=== PATIENT | female | born 1980 | race Caucasian/White ===

== ENCOUNTER 2019-10-14 18:06 | Emergency (ER) | payer OTHER ==
--- NOTE | 2019-10-14 18:39 | ED ---
Female Urogenital HPI - General Stated complaint: /bleedng Time Seen by Provider: 10/14/19 18:39 - History of Present Illness Initial comments: Patient is a 39-year-old female presenting to emergency Department with complaints of mild vaginal spotting that started this morning. She is currently 6 weeks . She has not yet seen an [employer] SALES CONSULTANT. Patient is . She is having no abdominal pain. Patient states she called her [employer] SALES CONSULTANT this morning and they suggested her going to the ER. Patient denies fever, chills, nausea, vomiting. She has no other complaints at this time. Upon arrival to the ER, her vital signs are stable. - Related Data Allergies Allergy/AdvReac Type Severity Reaction Status Date / Time No Known Allergies Allergy Verified 10/14/19 18:40 Review of Systems ROS Statement: Those systems with pertinent positive or pertinent negative responses have been documented in the HPI. ROS Other: All systems not noted in ROS Statement are negative. General Exam - General Exam Comments Initial Comments: Patient left AMA before physical examination. Course Vital Signs 10/14/19 18:37 Temperature 98.1 F Pulse Rate 119 H Respiratory 16 Rate Blood Pressure 166/96 O2 Sat by Pulse 100 Oximetry Medical Decision Making - Medical Decision Making Patient left AMA before physical examination. - Lab Data Lab Results 10/14/19 10/14/19 Range/Units 19:00 19:00 Urine Color Yellow Urine Appearance Clear (Clear) Urine pH 6.0 (5.0-8.0) Ur Specific [place] 1.013 (1.001-1.035) Urine Protein Negative (Negative) Urine Glucose (UA) Negative (Negative) Urine Ketones Negative (Negative) Urine Blood Small H (Negative) Urine Nitrite Negative (Negative) Urine Bilirubin Negative (Negative) Urine Urobilinogen <2.0 (<2.0) mg/dL Ur Leukocyte Esterase Trace H (Negative) Urine RBC 3 (0-5) /hpf Urine WBC 1 (0-5) /hpf Ur Squamous Epith Cells 3 (0-4) /hpf Urine Bacteria Rare H (None) /hpf Urine Mucus Rare H (None) /hpf Urine HCG, Qual Detected (Not Detectd) Disposition Clinical Impression: Vaginal bleeding Disposition: Left Against Medical Advice Referrals: Jude Church MD [Primary Care Provider] - 1-2 days
[2019-10-14 18:40] VITALS: BP 166/96; PULSE 119; RESP 16; TEMP 98.1
[2019-10-14 19:11] LABS: Appearance,Urine Clear (Clear); Bacteria,Urine Rare /hpf; Bilirubin,Urine Negative (Negative); Blood,Urine Small (Negative); Color,Urine Yellow; Glucose,Urine (UA) Negative (Negative); Ketones,Urine Negative (Negative); Leukocyte Esterase,Urine Trace (Negative); Mucus,Urine Rare /hpf; Nitrite,Urine Negative (Negative); Protein,Urine Negative (Negative); RBC,Urine 3 /hpf (0-5); Specific Gravity,Urine 1.013 (1.001-1.035); Squamous Epithelial Cell,Urine 3 /hpf (0-4); Urobilinogen,Urine <2.0 mg/dL (<2.0); WBC,Urine 1 /hpf (0-5)
== END 2019-10-14 19:15 | disposition left against medical advice (07) ==
LOC: EC 18:06
DX: O20.9 Hemorrhage in early pregnancy, unspecified (principal); Z3A.01 Less than 8 weeks gestation of pregnancy; Z53.29 Procedure and treatment not carried out because of patient's decision for other reasons
CPT/HCPCS: 81001; 81025; 99283

== ENCOUNTER → 2019-11-07 | Outpatient (CLI) | payer OTHER | END | disposition home or self-care (01) | LOC: LABWHC1 09:33 | PROVIDERS: ATTEND Obstetrics & Gynecology | DX: O20.0 Threatened abortion (principal); Z3A.00 Weeks of gestation of pregnancy not specified | CPT/HCPCS: 36415; 84702 ==

== ENCOUNTER 2019-11-11 10:16 | Emergency (ER) | payer OTHER ==
[2019-11-11] MEDS ORDERED: SODIUM CHLORIDE 0.9% 1,000 ML IV ONE (10:54)
--- NOTE | 2019-11-11 10:58 | ED ---
Female Urogenital HPI <Noman Cotton Luis - Last Filed: 11/11/19 13:52> - General Source: patient, RN notes reviewed, old records reviewed Mode of arrival: ambulatory Limitations: no limitations <Ruth Chang - Last Filed: 11/11/19 14:02> - General Chief complaint: Vaginal Bleeding Stated complaint: poss miscarriage Time Seen by Provider: 11/11/19 10:38 - History of Present Illness Initial comments: 39-year-old female presents today with vaginal bleeding onset last night today. She's had history of bleeding earlier in this . She states she is approximately 8 week . She states that she is Rh-. (Ruth Chang) - Related Data Home Medications Medication Instructions Recorded Confirmed Dextroamphetamine/Amphetamine 10 mg PO DAILY 11/11/19 11/11/19 [Dextroamp-Amphetamin 20 mg Tab] Previous Rx's Medication Instructions Recorded Acetaminophen-Codeine 300-30mg 1 tab PO Q6H PRN 3 Days #12 tablet 11/11/19 [Tylenol w/codeine #3] Allergies Allergy/AdvReac Type Severity Reaction Status Date / Time naproxen AdvReac Abdominal Verified 11/11/19 13:44 Pain Review of Systems ROS Other: All systems not noted in ROS Statement are negative. <Noman Cotton Luis - Last Filed: 11/11/19 13:52> ROS Other: All systems not noted in ROS Statement are negative. <Ruth Chang - Last Filed: 11/11/19 14:02> ROS Statement: Those systems with pertinent positive or pertinent negative responses have been documented in the HPI. Past Medical History Past Medical History: No Reported History History of Any Multi-Drug Resistant Organisms: None Reported Past Surgical History: No Surgical Hx Reported Past Psychological History: Anxiety, Depression Smoking Status: Never smoker Past Alcohol Use History: None Reported Past Drug Use History: None Reported <Ruth Chang - Last Filed: 11/11/19 14:02> General Exam Limitations: no limitations General appearance: alert, in no apparent distress Head exam: Present: atraumatic, normocephalic, normal inspection Eye exam: Present: normal appearance ENT exam: Present: normal exam, mucous membranes moist Neck exam: Present: normal inspection. Absent: tenderness, meningismus, lymphadenopathy Respiratory exam: Present: normal lung sounds bilaterally. Absent: respiratory distress, wheezes, rales, rhonchi, stridor <Ruth Chang - Last Filed: 11/11/19 14:02> Course Vital Signs 11/11/19 11/11/19 10:42 13:53 Temperature 98.5 F 97.4 F L Pulse Rate 122 H 91 Respiratory 18 17 Rate Blood Pressure 140/91 123/81 O2 Sat by Pulse 100 100 Oximetry Medical Decision Making - Lab Data Result diagrams: 11/11/19 11:00 <Noman Cotton - Last Filed: 11/11/19 13:52> - Lab Data Result diagrams: 11/11/19 11:00 <Ruth Chang - Last Filed: 11/11/19 14:02> - Medical Decision Making I did evaluate this patient personally. She is approximately 8 weeks by LMP. She's had vaginal bleeding with clots. She is refusing pelvic exam at this time by both the physician educational assistant teacher and myself. She is dosed with RhoGAM. Ultrasound shows complex cystic material in the cervical canal consistent with impending . I discussed case with her TEST CELL TECHNICIAN Dr. Portillo, who will follow-up with the patient in one week for repeat beta hCG. Patient will return with worsening pain, persistent bleeding. (Noman Cotton) - Lab Data Lab Results 11/11/19 11/11/19 11/11/19 Range/Units 10:58 10:58 11:00 WBC 10.6 (3.8-10.6) k/uL RBC 4.13 (3.80-5.40) m/uL Hgb 12.1 (11.4-16.0) gm/dL Hct 36.7 (34.0-46.0) % MCV 88.8 (80.0-100.0) fL MCH 29.2 (25.0-35.0) pg MCHC 32.9 (31.0-37.0) g/dL RDW 13.1 (11.5-15.5) % Plt Count 170 (150-450) k/uL Neutrophils % 83 % Lymphocytes % 10 % Monocytes % 5 % Eosinophils % 1 % Basophils % 0 % Neutrophils # 8.8 H (1.3-7.7) k/uL Lymphocytes # 1.0 (1.0-4.8) k/uL Monocytes # 0.5 (0-1.0) k/uL Eosinophils # 0.1 (0-0.7) k/uL Basophils # 0.0 (0-0.2) k/uL PT (9.0-12.0) sec INR (<1.2) APTT (22.0-30.0) sec HCG, Quant mIU/mL Urine Color Urine Appearance (Clear) Urine pH (5.0-8.0) Ur Specific [place] (1.001-1.035) Urine Protein (Negative) Urine Glucose (UA) (Negative) Urine Ketones (Negative) Urine Blood (Negative) Urine Nitrite (Negative) Urine Bilirubin (Negative) Urine Urobilinogen (<2.0) mg/dL Ur Leukocyte Esterase (Negative) Urine RBC (0-5) /hpf Urine WBC (0-5) /hpf Urine Mucus (None) /hpf Blood Type A Negative Blood Type Confirm Blood Type Recheck No Previous Record Bld Type Recheck Status CABO Indicated Antibody Screen NEGATIVE 11/11/19 11/11/19 11/11/19 Range/Units 11:00 11:00 11:00 WBC (3.8-10.6) k/uL RBC (3.80-5.40) m/uL Hgb (11.4-16.0) gm/dL Hct (34.0-46.0) % MCV (80.0-100.0) fL MCH (25.0-35.0) pg MCHC (31.0-37.0) g/dL RDW (11.5-15.5) % Plt Count (150-450) k/uL Neutrophils % % Lymphocytes % % Monocytes % % Eosinophils % % Basophils % % Neutrophils # (1.3-7.7) k/uL Lymphocytes # (1.0-4.8) k/uL Monocytes # (0-1.0) k/uL Eosinophils # (0-0.7) k/uL Basophils # (0-0.2) k/uL PT 10.5 (9.0-12.0) sec INR 1.0 (<1.2) APTT 22.4 (22.0-30.0) sec HCG, Quant 7576.7 mIU/mL Urine Color Yellow Urine Appearance Clear (Clear) Urine pH 6.0 (5.0-8.0) Ur Specific [place] 1.017 (1.001-1.035) Urine Protein Trace H (Negative) Urine Glucose (UA) Negative (Negative) Urine Ketones Negative (Negative) Urine Blood Large H (Negative) Urine Nitrite Negative (Negative) Urine Bilirubin Negative (Negative) Urine Urobilinogen <2.0 (<2.0) mg/dL Ur Leukocyte Esterase Small H (Negative) Urine RBC >182 H (0-5) /hpf Urine WBC 14 H (0-5) /hpf Urine Mucus Rare H (None) /hpf Blood Type Blood Type Confirm Blood Type Recheck Bld Type Recheck Status Antibody Screen 11/11/19 Range/Units 11:00 WBC (3.8-10.6) k/uL RBC (3.80-5.40) m/uL Hgb (11.4-16.0) gm/dL Hct (34.0-46.0) % MCV (80.0-100.0) fL MCH (25.0-35.0) pg MCHC (31.0-37.0) g/dL RDW (11.5-15.5) % Plt Count (150-450) k/uL Neutrophils % % Lymphocytes % % Monocytes % % Eosinophils % % Basophils % % Neutrophils # (1.3-7.7) k/uL Lymphocytes # (1.0-4.8) k/uL Monocytes # (0-1.0) k/uL Eosinophils # (0-0.7) k/uL Basophils # (0-0.2) k/uL PT (9.0-12.0) sec INR (<1.2) APTT (22.0-30.0) sec HCG, Quant mIU/mL Urine Color Urine Appearance (Clear) Urine pH (5.0-8.0) Ur Specific [place] (1.001-1.035) Urine Protein (Negative) Urine Glucose (UA) (Negative) Urine Ketones (Negative) Urine Blood (Negative) Urine Nitrite (Negative) Urine Bilirubin (Negative) Urine Urobilinogen (<2.0) mg/dL Ur Leukocyte Esterase (Negative) Urine RBC (0-5) /hpf Urine WBC (0-5) /hpf Urine Mucus (None) /hpf Blood Type Blood Type Confirm A Negative Blood Type Recheck Bld Type Recheck Status Antibody Screen Disposition <Noman Cotton - Last Filed: 11/11/19 13:52> Is patient prescribed a controlled substance at d/c from ED?: No Time of Disposition: 14:00 <Ruth Chang - Last Filed: 11/11/19 14:02> Clinical Impression: Threatened miscarriage Disposition: HOME SELF-CARE Condition: Good Instructions (If sedation given, give patient instructions): Miscarriage (ED) Additional Instructions: Patient advised to follow-up with OB -SINGING TEACHER, repeating hCG in one week from this time, and following up with TEST CELL TECHNICIAN afterwards. Return to ED if any alarming signs or symptoms occur. Prescriptions: Acetaminophen-Codeine 300-30mg [Tylenol w/codeine #3] 1 tab PO Q6H PRN 3 Days #12 tablet PRN Reason: Pain Referrals: Jude Church MD [Primary Care Provider] - 1-2 days Michael Portillo DO [Family Provider] - 1-2 days
[2019-11-11 11:31] LABS: Basophils % (A) 0 %; Eosinophils # (A) 0.1 k/uL (0-0.7); Eosinophils % (A) 1 %; HCT 36.7 % (34.0-46.0); HGB 12.1 gm/dL (11.4-16.0); Lymphocytes % (A) 10 %; MCH 29.2 pg (25.0-35.0); MCHC 32.9 g/dL (31.0-37.0); MCV 88.8 fL (80.0-100.0); Monocytes # (A) 0.5 k/uL (0-1.0); Monocytes % (A) 5 %; Neutrophils # (A) 8.8 k/uL (1.3-7.7); Neutrophils % (A) 83 %; Platelet Count 170 k/uL (150-450); RBC 4.13 m/uL (3.80-5.40); RDW 13.1 % (11.5-15.5); WBC 10.6 k/uL (3.8-10.6)
[2019-11-11 11:40] LABS: Appearance,Urine Clear (Clear); Bilirubin,Urine Negative (Negative); Blood,Urine Large (Negative); Color,Urine Yellow; Glucose,Urine (UA) Negative (Negative); Ketones,Urine Negative (Negative); Leukocyte Esterase,Urine Small (Negative); Mucus,Urine Rare /hpf; Nitrite,Urine Negative (Negative); Protein,Urine Trace (Negative); RBC,Urine >182 /hpf (0-5); Specific Gravity,Urine 1.017 (1.001-1.035); Urobilinogen,Urine <2.0 mg/dL (<2.0); WBC,Urine 14 /hpf (0-5)
[2019-11-11 11:45] LABS: Prothrombin Time 10.5 sec (9.0-12.0)
[2019-11-11 11:46] LABS: Partial Thromboplastin Time 22.4 sec (22.0-30.0)
--- NOTE | 2019-11-11 12:14 | US ---
EXAMINATION TYPE: Transabdominal DATE OF EXAM: 11/11/2019 11:58 AM COMPARISON: NONE CLINICAL HISTORY: bleeding, pain early . EXAM PERFORMED: Transabdominal (TA) EXAM MEASUREMENTS: GESTATIONAL AGE / DATING Physician Established: Not yet established Dates by LMP: 09/03/2019 (9 weeks/6 days) EDC: 06/09/2020 Dates by First Scan: No previous this is first scan Dates by Current Scan for: No IUP seen at this time MATERNAL ANATOMY Uterus: 12.8 x 6.9 x 9.1 cm Right Ovary: 3.8 x 2.1 x 2.3 cm Left Ovary: not identified Post CDS / Adnexa: no free fluid GESTATION / SURVEY No evidence of IUP in uterus. There is a fluid collection in the cervix that measures 7 weeks 2 days if this represents gestational sac. Date of LMP: 09/02/2019 Beta HcG (if available): not available at time of exam. Patient states prior ultrasound elsewhere that showed gestational sac and pole. Patient is blee ding heavily and passing clots. Patient did not want transvaginal ultrasound performed. No IUP seen, endo not thickened, there is fluid collection in cervix. IMPRESSION: Complex fluid collection in the cervical canal likely relates to spontaneous in the provided clinical setting. No evidence of intrauterine is seen. No pole or yolk s ac. Ensure decreasing beta hCG to exclude ectopic .
[2019-11-11] MEDS ORDERED: MORPHINE SULFATE 4 MG/ML SYRINGE IVP STA (12:48)
[2019-11-11] MEDS ORDERED: Rhogam IMMUNE GLOBULIN 1,500 UNIT/1 ML IM ONE (12:55)
[2019-11-11 13:54] VITALS: BP 123/81; PULSE 91; RESP 17; TEMP 97.4
[2019-11-11] MEDS ORDERED: ACET/COD 300 MG/30 MG STARTER PACK 6 TAB BTL PO STA (14:06)
== END 2019-11-11 14:25 | disposition home or self-care (01) ==
LOC: EC 10:16
DX: O20.0 Threatened abortion (principal); O34.41 Maternal care for other abnormalities of cervix, first trimester; N88.8 Other specified noninflammatory disorders of cervix uteri; Z88.6 Allergy status to analgesic agent; Z3A.00 Weeks of gestation of pregnancy not specified
CPT/HCPCS: 36415; 86900; 86901; 85025; 85610; 85730; 86850; 81001; 84702; 76801; 99285; 96372; 96361; 96374; J2791; J2270

== ENCOUNTER → 2019-11-19 | Outpatient (CLI) | payer OTHER | END | disposition home or self-care (01) | LOC: LABWHC1 08:08 | PROVIDERS: ATTEND Obstetrics & Gynecology | DX: O20.0 Threatened abortion (principal) | CPT/HCPCS: 36415; 84702 ==

== ENCOUNTER → 2019-12-05 | Outpatient (CLI) | payer OTHER | LOC: LABWHC1 09:11 | PROVIDERS: ATTEND Obstetrics & Gynecology | DX: O03.9 Complete or unspecified spontaneous abortion without complication (principal); Z3A.00 Weeks of gestation of pregnancy not specified | CPT/HCPCS: 36415; 84702 ==

== ENCOUNTER → 2022-09-22 | Outpatient (CLI) | payer OTHER ==
[2022-09-22 11:10] LABS: Partial Thromboplastin Time 25.1 sec (22.0-30.0); Prothrombin Time 10.5 sec (9.0-12.0)
[2022-09-22 15:58] LABS: Anion Gap 11.6 mmol/L (10.00-18.00); Blood Urea Nitrogen 10.3 mg/dL (9.0-27.0); Carbon Dioxide 25.4 mmol/L (20.0-27.5); Magnesium 2.2 mg/dL (1.5-2.4); Non-African American GFR(CKD) 106.1 (60.0-200.0); Potassium 4.8 mmol/L (3.5-5.5)
[2022-09-22 17:47] LABS: Basophils # (A) 0.02 X 10*3/uL (0.00-0.10); Basophils % (A) 0.4 %; Eosinophils # (A) 0.08 X 10*3/uL (0.04-0.35); Eosinophils % (A) 1.5 %; HCT 37.3 % (37.2-46.3); HGB 12.2 g/dL (12.0-15.0); Immature Grans, Automated 0.4 %; Lymphocytes # (A) 1.46 X 10*3/uL (0.90-5.00); Lymphocytes % (A) 26.7 %; MCH 29.4 pg (27.0-32.0); MCHC 32.7 g/dL (32.0-37.0); MCV 89.9 fL (80.0-97.0); Mean Platelet Volume 11.4 fL (9.5-12.2); Monocytes % (A) 5.5 %; NRBC Per 100 WBC 0 /100 WBCS (0.0-0.0); Neutrophils # (A) 3.59 X 10*3/uL (1.80-7.70); Neutrophils % (A) 65.5 %; Platelet Count 179 X 10*3/uL (140-440); RBC 4.15 X 10*6/uL (4.10-5.20); RDW 13.2 % (11.5-14.5); WBC 5.47 X 10*3/uL (4.50-10.00)
== END | disposition home or self-care (01) ==
LOC: LABWHC1 07:31
PROVIDERS: ATTEND Internal Medicine Cardiovascular Disease
DX: I47.1 Supraventricular tachycardia (principal)
CPT/HCPCS: 36415; 80051; 82565; 83735; 84520; 85025; 85610; 85730

== ENCOUNTER → 2022-11-03 | Outpatient (CLI) | payer OTHER | END | disposition home or self-care (01) | LOC: LABWHC1 09:08 | PROVIDERS: ATTEND Nurse Practitioner | DX: I10 Essential (primary) hypertension (principal) | CPT/HCPCS: 36415 ==

== ENCOUNTER → 2023-01-18 | Outpatient (CLI) | payer OTHER ==
[2023-01-18 16:28] LABS: Basophils # (A) 0.02 X 10*3/uL (0.00-0.10); Basophils % (A) 0.4 %; Eosinophils # (A) 0.05 X 10*3/uL (0.04-0.35); Eosinophils % (A) 0.9 %; HCT 39.2 % (37.2-46.3); HGB 12.7 g/dL (12.0-15.0); Immature Grans, Automated 0.2 %; Lymphocytes # (A) 1.26 X 10*3/uL (0.90-5.00); Lymphocytes % (A) 22.1 %; MCHC 32.4 g/dL (32.0-37.0); MCV 89.5 fL (80.0-97.0); Mean Platelet Volume 11.5 fL (9.5-12.2); Monocytes # (A) 0.38 X 10*3/uL (0.20-1.00); Monocytes % (A) 6.7 %; NRBC Per 100 WBC 0 /100 WBCS (0.0-0.0); Neutrophils # (A) 3.99 X 10*3/uL (1.80-7.70); Neutrophils % (A) 69.7 %; Platelet Count 180 X 10*3/uL (140-440); RBC 4.38 X 10*6/uL (4.10-5.20); RDW 12.8 % (11.5-14.5); WBC 5.71 X 10*3/uL (4.50-10.00)
[2023-01-18 16:51] LABS: ALT 16 U/L (8-44); AST 13 U/L (13-35); African American GFR (CKD) 128.3 (60.0-200.0); Albumin 4.6 g/dL (3.8-4.9); Albumin/Globulin Ratio 1.73 (1.60-3.17); Alkaline Phosphatase 48 U/L (41-126); BUN/Creat Ratio 18.99 Ratio (12.00-20.00); Blood Urea Nitrogen 11.7 mg/dL (9.0-27.0); Calcium 9.2 mg/dL (8.7-10.3); Carbon Dioxide 25.3 mmol/L (20.0-27.5); Chloride 101 mmol/L (96-109); Chol/HDL Ratio 2.81 Ratio; Globulin 2.6 g/dL (1.6-3.3); Glucose 87 mg/dL (70-110); LDL Cholesterol,Calculated 110.5 mg/dL (0.0-131.0); Non-African American GFR(CKD) 110.7 (60.0-200.0); Potassium 4.3 mmol/L (3.5-5.5); Rheumatoid Factor, Qnt <10 IU/mL (0-15); Sodium 139 mmol/L (135-145); Total Protein 7.2 g/dL (6.2-8.2); VLDL Calculation 11.86 mg/dL (5.00-40.00)
[2023-01-18 21:00] LABS: Hepatitis A Antibody IgM Nonreactive (Nonreactive); Hepatitis B Core IgM Nonreactive (Nonreactive); Hepatitis B Surface Antigen Nonreactive (Nonreactive); Hepatitis C IgG Antibody Nonreactive (Nonreactive)
[2023-01-18 23:00] LABS: Anti-DNA, DS unit <1.0 IU/mL; Centromere Antibody <0.2 AI; Centromere Antibody Interp NEGATIVE (NEGATIVE); DNA Double-Stranded NEGATIVE (NEGATIVE); Scleroderma SC-70 Ab <0.2 AI
== END | disposition home or self-care (01) ==
LOC: LABWHC1 08:08
PROVIDERS: ATTEND Internal Medicine
DX: Z00.00 Encounter for general adult medical examination without abnormal findings (principal); I73.00 Raynaud's syndrome without gangrene
CPT/HCPCS: 36415; 80053; 80061; 80074; 84443; 85025; 86038; 86200; 86225; 86235; 86431

== ENCOUNTER → 2023-02-15 | Outpatient (CLI) | payer OTHER ==
--- NOTE | 2023-02-16 07:16 | MM ---
Reason for Exam: Screening (asymptomatic). Baseline mammogram. Patient History: Menarche at age 11. First Full-Term at age 24. Premenopausal. Patient has history of breast feeding. Paternal aunt had breast cancer at or over age 50. Maternal grandmother had ovarian cancer under age 50. Last menstrual period: 02/03/2023 Risk Values: Dania 5 year model risk: 0.8%. NCI Lifetime model risk: 10.8%. Prior Study Comparison: Patient's first Mammogram. Tissue Density: The breast tissue is heterogeneously dense. This may lower the sensitivity of mammography. Findings: Analyzed By CAD. Asymmetric prominent soft tissue upper outer aspect both breasts with suggestion of obscured mass is including 8 mm oval mass left breast. Overall Assessment: Incomplete: need additional imaging evaluation, BI-RAD 0 Management: Diagnostic Breast Ultrasound of both breasts. Targeted ultrasound upper outer quadrant bilateral breasts. Patient should continue monthly self-breast exams. A clinical breast exam by your physician is recommended on an annual basis. This exam should not preclude additional follow-up of suspicious palpable abnormalities. Note on Dania scores and lifetime risk: 1. A Dania score greater than 3% is considered moderate risk. If this is the case, consider specialist referral to assess eligibility for a risk reducing agent. 2. If overall lifetime risk for the development of breast cancer is 20% or higher, the patient may qualify for future screening with alternating mammogram and breast MRI. Electronically signed and approved by: Tod Gonzalez M.D.
== END | disposition home or self-care (01) ==
LOC: RADMAMWWP 10:50
PROVIDERS: ATTEND Internal Medicine
DX: Z12.31 Encounter for screening mammogram for malignant neoplasm of breast (principal); Z80.3 Family history of malignant neoplasm of breast
CPT/HCPCS: 77067

== ENCOUNTER → 2023-09-13 | Outpatient (CLI) | payer OTHER ==
--- NOTE | 2023-09-13 09:16 | MM ---
Reason for Exam: Follow-up at short interval from prior study. Last screening mammogram was performed 6 month(s) ago. Patient History: Menarche at age 11. First Full-Term at age 24. Premenopausal. Patient has history of breast feeding. Paternal aunt had breast cancer at or over age 50. Maternal grandmother had ovarian cancer under age 50. Last menstrual period: 08/26/2023 Risk Values: Dania 5 year model risk: 0.9%. NCI Lifetime model risk: 10.7%. Tissue Density: The breast tissue is heterogeneously dense. This may lower the sensitivity of mammography. Findings: Analyzed By CAD. No new suspicious masses, calcifications or distortions. Overall Assessment: Negative, BI-RAD 1 Management: Screening Mammogram of both breasts in 6 months. Results were given to the patient verbally at the time of exam. Patient should continue monthly self-breast exams. A clinical breast exam by your physician is recommended on an annual basis. This exam should not preclude additional follow-up of suspicious palpable abnormalities. Note on Dania scores and lifetime risk: 1. A Dania score greater than 3% is considered moderate risk. If this is the case, consider specialist referral to assess eligibility for a risk reducing agent. 2. If overall lifetime risk for the development of breast cancer is 20% or higher, the patient may qualify for future screening with alternating mammogram and breast MRI. Electronically signed and approved by: Noman Sánchez DO
== END | disposition home or self-care (01) ==
LOC: RADMAMWWP 08:51
PROVIDERS: ATTEND Internal Medicine
DX: R92.333 Mammographic heterogeneous density, bilateral breasts (principal); Z80.3 Family history of malignant neoplasm of breast
CPT/HCPCS: 77066; G0279; 77062

== ENCOUNTER → 2025-01-20 | Outpatient (CLI) | payer BC ==
--- NOTE | 2025-01-20 17:01 | MM ---
Reason for Exam: Screening (asymptomatic). Last mammogram was performed 1 year(s) and 5 month(s) ago. Patient History: Menarche at age 11. First Full-Term at age 24. Premenopausal. Patient has history of breast feeding. Paternal aunt had breast cancer at or over age 50. Maternal grandmother had ovarian cancer under age 50. Last menstrual period: 01/10/2025 Risk Values: Dania 5 year model risk: 0.9%. NCI Lifetime model risk: 10.6%. Prior Study Comparison: 02/15/2023 Bilateral MG screening mammo w CAD, [facility]. 09/13/2023 Bilateral MG 3D diag mammo w/cad [facility], [facility]. Tissue Density: The breasts are heterogeneously dense, which may obscure small masses. Findings: Analyzed By CAD. Unchanged bilateral areas of asymmetric density. There is no suspicious group of microcalcifications or new suspicious mass in either breast. Overall Assessment: Benign, BI-RAD 2 Management: Screening Mammogram of both breasts in 1 year. Patient should continue monthly self-breast exams. A clinical breast exam by your physician is recommended on an annual basis. This exam should not preclude additional follow-up of suspicious palpable abnormalities. Note on Dania scores and lifetime risk: 1. A Dania score greater than 3% is considered moderate risk. If this is the case, consider specialist referral to assess eligibility for a risk reducing agent. 2. If overall lifetime risk for the development of breast cancer is 20% or higher, the patient may qualify for future screening with alternating mammogram and breast MRI. [facility], , 01/20/2025 4:58 PM. Electronically signed and approved by: Erasmo Wells M.D. Radiologist
== END | disposition home or self-care (01) ==
LOC: RADMAMWWP 15:57
PROVIDERS: ATTEND Internal Medicine
DX: Z12.31 Encounter for screening mammogram for malignant neoplasm of breast (principal); R92.333 Mammographic heterogeneous density, bilateral breasts; Z80.3 Family history of malignant neoplasm of breast
CPT/HCPCS: 77067

== ENCOUNTER → 2025-05-06 | Outpatient (CLI) | payer BC ==
[2025-05-06 10:27] LABS: Basophils # (A) 0.03 X 10*3/uL (0.00-0.10); Basophils % (A) 0.4 %; Eosinophils # (A) 0.10 X 10*3/uL (0.04-0.35); Eosinophils % (A) 1.4 %; HCT 40.9 % (37.2-46.3); HGB 13.0 g/dL (12.0-15.0); Immature Grans, Automated 0.10 %; Lymphocytes # (A) 1.63 X 10*3/uL (0.90-5.00); Lymphocytes % (A) 23.0 %; MCH 28.3 pg (27.0-32.0); MCHC 31.8 g/dL (32.0-37.0); MCV 89.1 FL (80.0-97.0); Monocytes # (A) 0.40 X 10*3/uL (0.20-1.00); Monocytes % (A) 5.6 %; NRBC Per 100 WBC 0 X 10*3/uL (0.00-0.01); Neutrophils # (A) 4.91 X 10*3/uL (1.80-7.70); Neutrophils % (A) 69.5 %; Platelet Count 205 X 10*3/uL (140-440); RBC 4.59 X 10*6/uL (4.10-5.20); RDW 13.2 % (11.5-14.5); WBC 7.08 X 10*3/uL (4.50-10.00)
[2025-05-06 10:58] LABS: ALT 13 U/L (8-44); AST 13 U/L (13-35); Albumin 4.7 g/dL (3.8-4.9); Albumin/Globulin Ratio 1.68 Ratio (1.60-3.17); Alkaline Phosphatase 56 U/L (41-126); Anion Gap 9.50 mmol/L (4.00-12.00); BUN/Creat Ratio 18.00 Ratio (12.00-20.00); Blood Urea Nitrogen 12.6 mg/dL (9.0-27.0); Calcium 9.3 mg/dL (8.7-10.3); Carbon Dioxide 26.5 mmol/L (21.6-31.8); Chloride 102 mmol/L (96-109); Cholesterol 194.00 mg/dL (0.00-200.00); Globulin 2.8 g/dL (1.6-3.3); Glucose 97 mg/dL (70-110); HDL Cholesterol 68.40 mg/dL (40.00-60.00); LDL Cholesterol,Calculated 108.8 mg/dL (0.0-131.0); Magnesium 1.9 mg/dL (1.5-2.4); Potassium 4.1 mmol/L (3.5-5.5); Sodium 138 mmol/L (135-145); Total Protein 7.5 g/dL (6.2-8.2); Triglycerides 83.80 mg/dL (0.00-149.00); VLDL Calculation 16.76 mg/dL (5.00-40.00)
== END | disposition home or self-care (01) ==
LOC: LABWHC1 07:51
PROVIDERS: ATTEND Internal Medicine
DX: Z00.00 Encounter for general adult medical examination without abnormal findings (principal); R00.2 Palpitations
CPT/HCPCS: 36415; 80053; 80061; 83735; 84443; 85025